=== PATIENT | female | born 1935 | race Caucasian/White ===

== ENCOUNTER 2016-12-13 10:05 | Observation (INO) | payer MEDICARE, OTHER ==
[~2016-12-13] VITALS: Ht 160 cm; Wt 68.2 kg
[~2016-12-13 10:05] MED LIST: AMBIEN 5MG TABLE5 MG PO; ASPIRIN E.C. 8181 MG PO; CEPHALEXIN500 M1 PO; COUMADIN; COUMADIN 3MG3 MG/TAB PO; COUMADIN 5MG5 MG/TAB PO; COUMADIN6 MG PO; DIGOXIN0.125 MG PO; ELIQUIS 5MG PO; FERROUS SULF15 MG/ML PO; LANOXIN 0.120.125 MG PO; LOPRESSOR 225 MG/TAB PO; LOPRESSOR 550 MG/TAB PO; LOVENOX 6060 MG/0.6 SQ; METOPROLOL TART25 MG PO; MULTAQ400 MG PO; NO HOME MEDICATIONS; PRILOSEC 20MG20 MG PO; RESTORIL15 MG PO; RESTORIL30 MG PO; TIAZAC120 MG PO; TIKOSYN0.25 MG PO; UNABLE; XANAX .25M0.25 MG/TA PO; XANAX 0.5MG0.5 MG PO; XARELTO20 MG PO; ZOFRAN ODT8 MG PO; ZOLOFT 50MG50 MG PO
[2016-12-13 11:03] LABS: BASO % 0.2 % (0.0-2.0); GRAN # 4.7 (1.4-6.5); GRAN % 81.5 % (42.2-75.2); HEMATOCRIT 43.7 % (37.0-47.0); HEMOGLOBIN 15.4 g/dl (12.5-16.0); LYMPH # 0.7 (1.2-3.4); LYMPH % 11.2 % (20.0-51.0); MEAN CELL VOLUME 86 fl (80.0-100.0); MEAN CORPUSCULAR HEMOGLOBIN 30 pg (27.0-31.0); MEAN CORPUSCULAR HGB CONC 35 g/dl (33.0-37.0); MEAN PLATELET VOLUME 10.3 fl (7.4-10.4); MONO # 0.4 (0.1-0.6); MONO % 6.6 % (1.7-9.3); PLATELET COUNT 160 K/mm3 (130-400); WHITE BLOOD COUNT 5.8 K/mm3 (4.8-10.8)
[2016-12-13 11:06] LABS: PH 5 (5-8); SQUAMOUS EPITHELIAL None Seen /hpf; URINE APPEARANCE Hazy; URINE BACTERIA None Seen /hpf; URINE BILIRUBIN Negative (NEGATIVE); URINE BLOOD Negative (NEGATIVE); URINE COLOR Amber; URINE GLUCOSE Negative (NEGATIVE); URINE KETONE Trace (NEGATIVE); URINE RBC 0-2 /hpf; URINE UROBILINOGEN Negative (NEGATIVE); URINE WBC 0-2 /hpf
[2016-12-13 11:27] LABS: ADJUSTED CALCIUM 8.7 mg/dL (8.4-10.2); ALBUMIN 3.7 gm/dL (3.5-5.0); BILIRUBIN,TOTAL 1.4 mg/dL (0.0-1.0); CALCIUM 8.5 mg/dL (8.4-10.2); CREATININE, serum 0.69 mg/dL (0.52-1.25)
[2016-12-13 11:43] LABS: TROPONIN-I 0.037 ng/mL (0.000-0.034)
[2016-12-13] MEDS ORDERED: LOPRESSOR 225 MG/TAB PO (11:53)
[2016-12-13] MEDS ORDERED: AZO-CRANBERRY450 MG PO (15:08)
[2016-12-13 15:52] VITALS: BP 114/68; PULSE 80; TEMP 97.4
[2016-12-13 19:14] LABS: INFLUENZA B NEGATIVE
[2016-12-13 20:06] VITALS: BP 104/49; PULSE 85; TEMP 97.2
[2016-12-14 00:23] VITALS: BP 114/68; PULSE 87; TEMP 97.9
[2016-12-14 04:35] VITALS: BP 113/74; PULSE 82; TEMP 97.7
[2016-12-14 04:58] LABS: BASO % 0.3 % (0.0-2.0); GRAN # 2.5 (1.4-6.5); GRAN % 63.3 % (42.2-75.2); HEMATOCRIT 38.1 % (37.0-47.0); LYMPH # 1.1 (1.2-3.4); LYMPH % 27.1 % (20.0-51.0); MEAN CELL VOLUME 87 fl (80.0-100.0); MEAN CORPUSCULAR HEMOGLOBIN 31 pg (27.0-31.0); MEAN CORPUSCULAR HGB CONC 35 g/dl (33.0-37.0); MEAN PLATELET VOLUME 11.1 fl (7.4-10.4); MONO # 0.4 (0.1-0.6); PLATELET COUNT 135 K/mm3 (130-400); RED BLOOD COUNT 4.38 M/mm3 (4.10-5.30); REDCELL DISTRIBUTION WIDTH-CV 13.2 % (11.5-14.5)
[2016-12-14 05:01] LABS: HEMOGLOBIN 13.4 g/dl (12.5-16.0)
[2016-12-14 05:35] LABS: CALCIUM 7.9 mg/dL (8.4-10.2); CREATININE, serum 0.6 mg/dL (0.52-1.25); POTASSIUM 3.6 mmol/L (3.4-5.0)
[2016-12-14 07:41] VITALS: BP 100/53; PULSE 73; TEMP 98.3
[2016-12-14 12:01] VITALS: BP 119/80; PULSE 81; TEMP 98.6
[2016-12-14 15:29] VITALS: BP 120/67; PULSE 77; TEMP 97.3
[2016-12-14] MEDS ORDERED: PERCOCET 325 MG1 TA2 PO (15:29)
[2017-07-23] MEDS ORDERED: TYLENOL 500MG500 MG PO (19:09)
[2017-07-23] MEDS ORDERED: NORCO2.5 PO (20:52)
== END 2016-12-14 18:00 | disposition home or self-care (01) ==
LOC: COL.ER 10:05 → MEDICAL 13:41 → COL.ER 13:41 → MEDICAL 13:41
PROVIDERS: Emergency Medicine; Physician Assistant
DX: A08.4 Viral intestinal infection, unspecified (principal); E87.1 Hypo-osmolality and hyponatremia; I69.398 Other sequelae of cerebral infarction; I10 Essential (primary) hypertension; I48.92 Unspecified atrial flutter; Z95.0 Presence of cardiac pacemaker; I48.2 Chronic atrial fibrillation; Z79.01 Long term (current) use of anticoagulants
CPT/HCPCS: G0378; G8978-GP; G8979-GP; G8987-GO; G8988-GO; J1170; J1956; J2405; J7030; Q9967

== ENCOUNTER 2017-05-17 08:54 | Emergency (ER) | payer MEDICARE, OTHER ==
[~2017-05-17] VITALS: Ht 149.9 cm; Wt 70.5 kg
[~2017-05-17 08:54] MED LIST changes: +AZO-CRANBERRY450 MG PO; +PERCOCET 325 MG1 TA2 PO
[2017-05-17 08:58] VITALS: BP 129/73; PULSE 85; TEMP 97.6
[2017-05-17 10:14] LABS: BASO % 0.6 % (0.0-2.0); EOS % 0.6 % (0-4.0); GRAN # 2.6 (1.4-6.5); GRAN % 55.9 % (42.2-75.2); HEMATOCRIT 43.6 % (37.0-47.0); HEMOGLOBIN 14.8 g/dl (12.5-16.0); LYMPH # 1.6 (1.2-3.4); LYMPH % 34.7 % (20.0-51.0); MEAN CELL VOLUME 86 fl (80.0-100.0); MEAN CORPUSCULAR HEMOGLOBIN 29 pg (27.0-31.0); MEAN CORPUSCULAR HGB CONC 34 g/dl (33.0-37.0); MEAN PLATELET VOLUME 9.9 fl (7.4-10.4); MONO # 0.4 (0.1-0.6); MONO % 7.8 % (1.7-9.3); PLATELET COUNT 251 K/mm3 (130-400); RED BLOOD COUNT 5.07 M/mm3 (4.10-5.30); REDCELL DISTRIBUTION WIDTH-CV 13.2 % (11.5-14.5); WHITE BLOOD COUNT 4.7 K/mm3 (4.8-10.8)
[2017-05-17 10:23] LABS: PH 5 (5-8); SQUAMOUS EPITHELIAL 0-2 /hpf; URINE APPEARANCE Clear; URINE BACTERIA None Seen /hpf; URINE BILIRUBIN Negative (NEGATIVE); URINE BLOOD 1+ (NEGATIVE); URINE COLOR Yellow; URINE GLUCOSE Negative (NEGATIVE); URINE KETONE Negative (NEGATIVE); URINE RBC 0-2 /hpf; URINE UROBILINOGEN Negative (NEGATIVE); URINE WBC 0-2 /hpf
[2017-05-17 10:27] LABS: ADJUSTED CALCIUM 8.8 mg/dL (8.4-10.2); ALANINE AMINOTRANSFERASE 24 U/L (9-52); ALBUMIN 3.8 gm/dL (3.5-5.0); ALKALINE PHOSPHATASE 54 U/L (50-136); ANION GAP 7 mmol/L (7-16); BILIRUBIN,TOTAL 1.2 mg/dL (0.0-1.0); BLOOD UREA NITROGEN 12 mg/dL (7-17); C-REACTIVE PROTEIN < 0.5 mg/dL (0.0-0.9); CALCIUM 8.6 mg/dL (8.4-10.2); CARBON DIOXIDE 23 mmol/L (22-30); CHLORIDE 94 mmol/L (98-107); CREATININE, serum 0.72 mg/dL (0.52-1.25); GLUCOSE 94 mg/dL (74-106); POTASSIUM 4.4 mmol/L (3.4-5.0); SODIUM 125 mmol/L (137-145); TOTAL PROTEIN 6.9 gm/dL (6.4-8.2)
[2017-05-17 10:33] LABS: INR 1.6 (0.8-3.0); PROTHROMBIN TIME 18.3 SECONDS (9.7-12.8)
[2017-05-17 10:36] LABS: B-TYPE NATRIURETIC PEPTIDE 995 pg/mL (0-450); PARTIAL THROMBOPLASTIN TIME 34.9 SECONDS (26.0-37.0); TROPONIN-I 0.012 ng/mL (0.000-0.034)
[2017-05-17 10:41] LABS: ERYTHROCYTE SEDIMENTATION RATE 2 mm/hr (0-30)
[2017-07-23] MEDS ORDERED: TYLENOL 500MG500 MG PO (19:09)
[2017-07-23] MEDS ORDERED: NORCO2.5 PO (20:52)
== END 2017-05-17 14:35 | disposition home or self-care (01) ==
LOC: COL.ER 08:54
PROVIDERS: Emergency Medicine
DX: E87.1 Hypo-osmolality and hyponatremia (principal); R53.1 Weakness; I48.91 Unspecified atrial fibrillation; I10 Essential (primary) hypertension; M25.551 Pain in right hip; I69.321 Dysphasia following cerebral infarction; Z95.0 Presence of cardiac pacemaker; Z79.01 Long term (current) use of anticoagulants
CPT/HCPCS: J7040

== ENCOUNTER 2017-07-27 11:58 | Emergency (ER) | payer MEDICARE, OTHER ==
[~2017-07-27] VITALS: Ht 149.9 cm; Wt 69.1 kg
[~2017-07-27 11:58] MED LIST changes: +NORCO2.5 PO; +TYLENOL 500MG500 MG PO
[2017-07-27 12:01] VITALS: TEMP 97.4
[2017-07-27 12:48] LABS: BASO % 0.5 % (0.0-2.0); EOS % 0.5 % (0-4.0); GRAN # 2.6 (1.4-6.5); GRAN % 60.3 % (42.2-75.2); HEMATOCRIT 39.1 % (37.0-47.0); HEMOGLOBIN 13.8 g/dl (12.5-16.0); LYMPH # 1.3 (1.2-3.4); LYMPH % 29.2 % (20.0-51.0); MEAN CELL VOLUME 86 fl (80.0-100.0); MEAN CORPUSCULAR HEMOGLOBIN 30 pg (27.0-31.0); MEAN CORPUSCULAR HGB CONC 35 g/dl (33.0-37.0); MEAN PLATELET VOLUME 9.5 fl (7.4-10.4); MONO # 0.4 (0.1-0.6); PLATELET COUNT 228 K/mm3 (130-400); RED BLOOD COUNT 4.54 M/mm3 (4.10-5.30); REDCELL DISTRIBUTION WIDTH-CV 14.2 % (11.5-14.5); WHITE BLOOD COUNT 4.3 K/mm3 (4.8-10.8)
[2017-07-27 12:57] LABS: ADJUSTED CALCIUM 8.7 mg/dL (8.4-10.2); ALBUMIN 3.8 gm/dL (3.5-5.0); BILIRUBIN,TOTAL 1.4 mg/dL (0.0-1.0); C-REACTIVE PROTEIN 0.6 mg/dL (0.0-0.9); CALCIUM 8.5 mg/dL (8.4-10.2); CREATININE, serum 0.7 mg/dL (0.52-1.25); POTASSIUM 4.2 mmol/L (3.4-5.0); TOTAL PROTEIN 6.7 gm/dL (6.4-8.2)
[2017-07-27 14:27] VITALS: BP 145/74; PULSE 74
== END 2017-07-27 15:25 | disposition home or self-care (01) ==
LOC: COL.ER 11:58
PROVIDERS: Family Medicine
DX: M48.00 Spinal stenosis, site unspecified (principal); F03.90 Unspecified dementia, unspecified severity, without behavioral disturbance, psychotic disturbance, mood disturbance, and anxiety; Z86.73 Personal history of transient ischemic attack (TIA), and cerebral infarction without residual deficits

== ENCOUNTER 2018-05-15 12:44 | Emergency (ER) | payer MEDICARE, OTHER ==
[~2018-05-15] VITALS: Ht 165.1 cm; Wt 90.9 kg
[2018-05-15 12:47] VITALS: BP 121/74; TEMP 97.4
[2018-05-15] MEDS ORDERED: FENTANYL 12MCG TD (13:00)
[2018-05-15 13:09] LABS: BASO % 0.6 % (0.0-2.0); EOS % 0.6 % (0-4.0); GRAN # 2.4 (1.4-6.5); GRAN % 49.3 % (42.2-75.2); HEMATOCRIT 41.5 % (37.0-47.0); HEMOGLOBIN 13.8 g/dl (12.5-16.0); LYMPH % 40.4 % (20.0-51.0); MEAN CELL VOLUME 90 fl (80.0-100.0); MEAN CORPUSCULAR HEMOGLOBIN 30 pg (27.0-31.0); MEAN CORPUSCULAR HGB CONC 33 g/dl (33.0-37.0); MEAN PLATELET VOLUME 9.7 fl (7.4-10.4); MONO # 0.4 (0.1-0.6); MONO % 8.9 % (1.7-9.3); PLATELET COUNT 256 K/mm3 (130-400); RED BLOOD COUNT 4.59 M/mm3 (4.10-5.30); REDCELL DISTRIBUTION WIDTH-CV 13.3 % (11.5-14.5)
[2018-05-15 13:13] LABS: INR 1.3 (0.8-3.0); PROTHROMBIN TIME 14.3 SECONDS (9.7-12.8)
[2018-05-15 13:16] LABS: PARTIAL THROMBOPLASTIN TIME 38.7 SECONDS (26.0-37.0)
[2018-05-15 13:23] LABS: ALANINE AMINOTRANSFERASE 22 U/L (9-52); ALBUMIN 3.6 gm/dL (3.5-5.0); ALKALINE PHOSPHATASE 56 U/L (50-136); ANION GAP 10 mmol/L (7-16); AST,SGOT 23 U/L (15-37); BILIRUBIN,TOTAL 0.5 mg/dL (0.0-1.0); BLOOD UREA NITROGEN 17 mg/dL (7-17); C-REACTIVE PROTEIN 0.8 mg/dL (0.0-0.9); CALCIUM 8.6 mg/dL (8.4-10.2); CARBON DIOXIDE 26 mmol/L (22-30); CHLORIDE 97 mmol/L (98-107); CREATININE, serum 0.66 mg/dL (0.52-1.25); GLUCOSE 102 mg/dL (74-106); MAGNESIUM 1.9 mg/dL (1.6-2.3); PHOSPHOROUS 4.2 mg/dL (2.5-4.5); POTASSIUM 4.1 mmol/L (3.4-5.0); SODIUM 133 mmol/L (137-145); TOTAL PROTEIN 7.2 gm/dL (6.4-8.2)
[2018-05-15 13:33] LABS: COLLECTION METHOD CATHETER
[2018-05-15 13:33] LABS: TROPONIN-I < 0.012 ng/mL (0.000-0.034)
[2018-05-15 13:37] LABS: ERYTHROCYTE SEDIMENTATION RATE 6 mm/hr (0-30)
[2018-05-15 13:44] LABS: MUCOUS Present /lpf; PH 5 (5-8); SQUAMOUS EPITHELIAL None Seen /hpf; URINE APPEARANCE Clear; URINE BACTERIA None Seen /hpf; URINE BILIRUBIN Negative (NEGATIVE); URINE BLOOD 1+ (NEGATIVE); URINE COLOR Yellow; URINE GLUCOSE Negative (NEGATIVE); URINE KETONE Negative (NEGATIVE); URINE LEUKOCYTE ESTERASE Negative (NEGATIVE); URINE NITRATE Negative (NEGATIVE); URINE PROTEIN(semi-quant) Negative (NEGATIVE); URINE RBC 0-2 /hpf
[2018-05-15] MEDS ORDERED: CEFTIN500 MG PO (16:11)
[2018-05-15] MEDS ORDERED: ZITHROMAX 250M250 MG PO (16:11)
[2018-05-15] MEDS ORDERED: DIFLUCAN150 MG PO (16:18)
[2018-05-15 16:21] VITALS: PULSE 70
== END 2018-05-15 16:21 | disposition home or self-care (01) ==
LOC: COL.ER 12:44
PROVIDERS: Emergency Medicine
DX: J18.1 Lobar pneumonia, unspecified organism (principal); R53.1 Weakness; I10 Essential (primary) hypertension; Z86.73 Personal history of transient ischemic attack (TIA), and cerebral infarction without residual deficits; Z95.0 Presence of cardiac pacemaker